=== PATIENT | female | born 1935 | race Two or more races ===

== ENCOUNTER 2018-07-06 08:56 | Outpatient (CLI) | payer OTHER | END 2018-07-06 09:18 | disposition home or self-care (01) | LOC: TOM 08:56 | DX: R10.31 Right lower quadrant pain (principal); R10.33 Periumbilical pain | CPT/HCPCS: 74178; Q9965 ==

== ENCOUNTER 2018-07-13 08:42 | Outpatient (CLI) | payer OTHER | END 2018-07-13 09:03 | disposition home or self-care (01) | LOC: RX STUDY 08:42 | DX: R10.31 Right lower quadrant pain (principal) ==